=== PATIENT | male | born 1990 | race Caucasian/White ===

== ENCOUNTER 2018-11-26 11:12 | Emergency (ER) | payer OTHER ==
[~2018-11-26] VITALS: Ht 167.6 cm; Wt 95.0 kg
[2018-11-26 11:13] VITALS: BP 141/85; PULSE 76; RESP 20; Ht 167.6 cm; Wt 95.0 kg
--- NOTE | 2018-11-26 11:27 | ERD ---
ER Documentation Chief Complaint Chief Complaint Per Patient he got stuck with a needle at work HPI 28-year-old male, previously healthy, presents to the emergency department, complaining of a needlestick injury that occurred at work this morning. 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 The patient brought the needle to the emergency department, that is consistent with an insulin needle. Patient denies active bleeding at the time of the injury, no previous history of HIV, no hepatitis. ROS All systems reviewed and are negative except as per history of present illness. Allergies Allergies: Coded Allergies: No Known Allergy (Unverified , 01/10/15) PMhx/Soc History of Surgery: No Anesthesia Reaction: No Hx Neurological Disorder: No Hx Respiratory Disorders: No Hx Cardiac Disorders: No Hx Psychiatric Problems: No Hx Miscellaneous Medical Probl: No Hx Alcohol Use: No Hx Substance Use: No Hx Tobacco Use: No Physical Exam Vitals Vital Signs Date Temp Pulse Resp B/P (MAP) Pulse Ox O2 O2 Flow FiO2 Time Delivery Rate 11/26/18 97.9 76 20 141/85 97 11:13 (103) Physical Exam Const: No acute distress Head: Atraumatic Eyes: Normal Conjunctiva ENT: Normal External Ears, Nose and Mouth. Neck: Full range of motion. No meningismus. Resp: Clear to auscultation bilaterally Cardio: Regular rate and rhythm, no murmurs Abd: Soft, non tender, non distended. Normal bowel sounds Skin: No petechiae or rashes Back: No midline or flank tenderness Ext: Neur: Awake and alert Psych: Normal Mood and Affect Results 24 hrs Laboratory Tests Test 11/26/18 11:31 Hepatitis B Surface Antigen NEGATIVE Hepatitis B Surface Antibody NEGATIVE Hepatitis C Antibody NEGATIVE HIV (1&2) Antibody NEGATIVE Procedures/MDM Physical examination unremarkable. Based on the injury, most likely low risk for blood-borne transmission infection. During the ED course the patient remained stable, no new complaints. he is stable to be treated outpatient and will be discharged home with a follow up with the primary care provider in the next 48h. If symptoms persist, worsen or new symptoms develop, then patient should return to the ED immediately. Instructions explained and given directly by me to the patient with a cknowledgment and demonstrated understanding, the patient was told to repeat the test in 1 month and in 3 months.. Disclaimer: Inadvertent spelling and grammatical errors are likely due to EHR/dictation software use and do not reflect on the overall quality of patient care. Also, please note that the electronic time recorded on this note does not necessarily reflect the actual time of the patient encounter. Departure Diagnosis: Primary Impression: Needlestick injury accident Additional Impression: Work place accident Condition: Stable Patient Instructions: Standard Precautions: [place] and Other [place] Additional Instructions: Thank you very much for allowing us to participate in your care. Your health and safety is our top priority at [facility]. Call your primary care doctor TOMORROW for an appointment during the next 2-4 days and bring all the information and medications prescribed. You need a follow-up of the blood test in 1 month and then in 3 months. Have prescriptions filled and follow precisely the directions on the label. If the symptoms get worse and your provider is unavailable, return to the Emergency Department immediately. ROBERTO MOREL MD Nov 26, 2018 11:27
== END 2018-11-26 13:35 | disposition home or self-care (01) ==
LOC: FTE 11:12
DX: S51.832A Puncture wound without foreign body of left forearm, initial encounter (principal); W46.0XXA Contact with hypodermic needle, initial encounter; Y92.89 Other specified places as the place of occurrence of the external cause
CPT/HCPCS: 86703; 86706; 86803; 87340; Z7502; 99283